=== PATIENT | female | born 1980 | race African-American/Black ===

== ENCOUNTER 2016-05-29 10:29 | Emergency (ER) | payer OTHER, MEDICAID ==
[~2016-05-29] VITALS: Ht 165.1 cm; Wt 65.9 kg
[2016-05-29 10:40] VITALS: BP 136/94; PULSE 64; TEMP 97.5
[2016-05-29] MEDS ORDERED: FLEXERIL 1010 MG/TAB PO (12:33)
== END 2016-05-29 12:47 | disposition home or self-care (01) ==
LOC: COL.ER 10:29
DX: S59.801A Other specified injuries of right elbow, initial encounter (principal); S09.8XXA Other specified injuries of head, initial encounter; S19.89XA Other specified injuries of other specified part of neck, initial encounter; V49.88XA Car occupant (driver) (passenger) injured in other specified transport accidents, initial encounter; Y92.488 Other paved roadways as the place of occurrence of the external cause

== ENCOUNTER 2018-01-27 09:33 | Inpatient (IN) | payer MEDICAID ==
[2018-01-27] VITALS (42 sets, daily range): BP systolic 108–150; BP diastolic 61–89; PULSE 59–112; TEMP 97.3–98.3
[~2018-01-27] VITALS: Ht 162.6 cm; Wt 76.4 kg
[~2018-01-27 09:33] MED LIST: FLEXERIL 1010 MG/TAB PO
[2018-01-27] MEDS ORDERED: PRENATAL PO (10:42)
[2018-01-27 11:04] LABS: BASO % 0.3 % (0.0-2.0); EOS # 0.1 (0.0-0.7); EOS % 0.8 % (0-4.0); GRAN # 4.3 (1.4-6.5); GRAN % 66.4 % (42.2-75.2); HEMOGLOBIN 11.3 g/dl (12.5-16.0); LYMPH # 1.6 (1.2-3.4); LYMPH % 24.3 % (20.0-51.0); MEAN CELL VOLUME 86 fl (80.0-100.0); MEAN CORPUSCULAR HEMOGLOBIN 29 pg (27.0-31.0); MEAN CORPUSCULAR HGB CONC 34 g/dl (33.0-37.0); MEAN PLATELET VOLUME 10.6 fl (7.4-10.4); MONO # 0.5 (0.1-0.6); MONO % 7.9 % (1.7-9.3); PLATELET COUNT 251 K/mm3 (130-400); RED BLOOD COUNT 3.84 M/mm3 (4.10-5.30); REDCELL DISTRIBUTION WIDTH-CV 14.3 % (11.5-14.5)
[2018-01-27 11:11] LABS: HEMATOCRIT 33.1 % (37.0-47.0)
[2018-01-28 06:45] VITALS: BP 113/77; PULSE 67; TEMP 98
[2018-01-28 11:00] VITALS: BP 127/74; PULSE 76; TEMP 98.7
[2018-01-28 15:33] VITALS: BP 117/80; PULSE 69; TEMP 98.1
[2018-01-28 20:00] VITALS: BP 115/66; PULSE 70; TEMP 98.6
[2018-01-29 08:05] VITALS: BP 114/66; PULSE 72; TEMP 98.1
[2018-01-29] MEDS ORDERED: IBU600 MG PO (08:34)
== END 2018-01-29 12:16 | disposition home or self-care (01) | DRG 775 ==
LOC: OB 09:33 → LDR 10:08 → OB 22:00
PROVIDERS: Obstetrics & Gynecology
PROC: 10E0XZZ Delivery of Products of Conception, External Approach (ICD-10-PCS; principal; 2018-01-27)
DX: O43.893 Other placental disorders, third trimester (principal); Z3A.39 39 weeks gestation of pregnancy; Z37.0 Single live birth; O69.81X0 Labor and delivery complicated by cord around neck, without compression, not applicable or unspecified
CPT/HCPCS: J2405; J2590; J7120

== ENCOUNTER 2019-02-27 13:30 | Emergency (ER) | payer MEDICAID ==
[~2019-02-27] VITALS: Ht 165.1 cm; Wt 66.1 kg
[~2019-02-27 13:30] MED LIST changes: +IBU600 MG PO; +PRENATAL PO
[2019-02-27 13:36] VITALS: TEMP 98.4
[2019-02-27 14:32] LABS: BASO % 0.2 % (0.0-2.0); EOS % 0.3 % (0-4.0); GRAN # 5.7 (1.4-6.5); GRAN % 89.5 % (42.2-75.2); HEMATOCRIT 43.5 % (37.0-47.0); HEMOGLOBIN 14.6 g/dl (12.5-16.0); LYMPH # 0.4 (1.2-3.4); LYMPH % 6.3 % (20.0-51.0); MEAN CELL VOLUME 87 fl (80.0-100.0); MEAN CORPUSCULAR HEMOGLOBIN 29 pg (27.0-31.0); MEAN CORPUSCULAR HGB CONC 34 g/dl (33.0-37.0); MEAN PLATELET VOLUME 9.9 fl (7.4-10.4); MONO # 0.2 (0.1-0.6); MONO % 3.5 % (1.7-9.3); PLATELET COUNT 237 K/mm3 (130-400)
[2019-02-27 14:43] LABS: ALBUMIN 4.4 gm/dL (3.5-5.0); BILIRUBIN,TOTAL 0.8 mg/dL (0.0-1.0); CALCIUM 9.1 mg/dL (8.4-10.2); CREATININE, serum 0.67 (0.52-1.25); POTASSIUM 4.4 mmol/L (3.4-5.0); TOTAL PROTEIN 7.3 gm/dL (6.4-8.2)
[2019-02-27 14:54] LABS: COLLECTION METHOD CLEAN CATCH
[2019-02-27 15:22] LABS: MUCOUS Present /lpf; PH 6 (5-8); SQUAMOUS EPITHELIAL 0-2 /hpf; URINE APPEARANCE Clear; URINE BACTERIA None Seen /hpf; URINE BILIRUBIN Negative (NEGATIVE); URINE BLOOD Negative (NEGATIVE); URINE COLOR Yellow; URINE GLUCOSE Negative (NEGATIVE); URINE KETONE Negative (NEGATIVE); URINE LEUKOCYTE ESTERASE Negative (NEGATIVE); URINE NITRATE Negative (NEGATIVE); URINE PROTEIN(semi-quant) Negative (NEGATIVE)
[2019-02-27] MEDS ORDERED: ZOFRAN 4MG T4 MG/TAB PO (15:36)
[2019-02-27 16:10] VITALS: BP 128/90; PULSE 88
== END 2019-02-27 16:10 | disposition home or self-care (01) ==
LOC: COL.ER 13:30
PROVIDERS: Nurse Practitioner Primary Care
DX: A08.4 Viral intestinal infection, unspecified (principal); J45.909 Unspecified asthma, uncomplicated
CPT/HCPCS: J1885; J2405; J7030

== ENCOUNTER → 2021-12-23 | Outpatient (CLI) | payer BC ==
[~2021-12-23] MED LIST changes: +ZOFRAN 4MG T4 MG/TAB PO
== END ==
LOC: COL.RAD 12:30
DX: M50.222 Other cervical disc displacement at C5-C6 level (principal)